=== PATIENT | male | born 1935 | race Caucasian/White ===

== ENCOUNTER → 2018-11-20 | Outpatient (CLI) | payer OTHER ==
[~2018-11-20] VITALS: Ht 177.8 cm; Wt 83.9 kg
[~2018-11-20] MED LIST: ALEVE220 MG; ASA5UEC; CENTRUM SILVER1 EAC1; FLOMAX0.4 MG PO; LOVASTATIN; LOVASTATIN 20 M20 MG PO; MAGOX 400400 MG PO; MECLIZINE 25 MG25 M1 PO; NEURONTIN 300300 M1 PO; NEXIUM; NEXIUM40 MG PO; OCUVITE TABLET1 EAC1; PRISTIQ50 MG; SYNTHROID; SYNTHROID125 MC1 PO; TRAMADOL 50 MG50 MG PO; VITAMIN D-32000 UNIT PO; VITAMIN D250 MCG PO; ZANAFLEX2 MG PO
--- NOTE | ~2018-11-20 | HPC ---
[facility] [address] [place] [address] PAIN MANAGEMENT CONSULTATION Name: BRYAN VAZQUEZ [id number] Admission: 11/20/18 ������������������ Attend Phys: Yony Baugh MD Discharge: ������������������ Date of : 31 Report #: [id number] THIS REPORT FOR: //name// CC: JENNA Baugh DATE OF SERVICE: 11/20/2018 CHIEF COMPLAINT: Low back pain with radiation into the right iliac crest region and right hip. HISTORY OF PRESENT ILLNESS: The patient is a really pleasant 83-year-old. Dr. Mcmillan has asked me to see in consultation. He has been dealing with low back pain. This got worse over the course of the last year. The pain intensity is an 8/10. He describes it as a continuous, steady, aching sensation. He has had several recent falls. Has had some dizziness, which may be related to medications. CURRENT MEDICATIONS: Omeprazole, magnesium, lovastatin, tizanidine, tramadol 50 mg b.i.d., levothyroxine 125 mcg daily, tamsulosin 0.4 mg at bedtime, gabapentin 300 mg b.i.d. and D3. ALLERGIES: None. 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 Locally by Dr. Munoz who performed the final repair. History cholecystectomy, hypothyroidism. SOCIAL HISTORY: He is retired. 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 Denies use of tobacco and alcohol. He is . His is supporting with him today. REVIEW OF SYSTEMS: He reports blurring of vision, loss of hearing, shortness of breath, dyspnea on exertion and orthopnea. He has frequent urination. PHYSICAL EXAMINATION: GENERAL: Pleasant, outgoing 83-year-old gentleman. He can move easily from sitting to standing position, but is unstable on his feet, which we considered a fall risk. VITAL SIGNS: He is 5 feet 10 inches, 185 pounds, BMI 26.5. Blood pressure is 135/85, heart rate 88. CHEST: Clear to auscultation. CARDIAC: Rhythm is regular. [facility] [address] [place] [address] PAIN MANAGEMENT CONSULTATION Name: BRYAN VAZQUEZ Room #: REG [facility]#: [id number] Admission: 11/20/18 ������������������ Attend Phys: Yony Baugh MD Discharge: ������������������ Date of : 33 Report #: [id number] ABDOMEN: Soft. MUSCULOSKELETAL: Reveals tenderness across his low back. He has minimal pain with forward flexion, but extension reproduces pain across the low back and down into the hips. Straight leg raising is negative other than hamstring tightness. Sensation is intact. He has some generalized weakness of the lower extremities. IMPRESSION: Low back pain with spondylosis. RECOMMENDATIONS: Rather than pursuing the extensive process of facet treatment, I would prefer today to proceed with an epidural steroid injection as a first step. If he did fail at this, I would consider facet arthropathy treatments with local anesthetic injection in the facet joints. He requires a preauthorization. I was unable to perform the injection today. I plan to see him back in the pain clinic in 1 week for a lumbar epidural steroid injection at L4-L5. ��������������������������������������������� ���������������������������������������� By: ��������������������������������������������� 1748 [id number] Yony Baugh MD /nt
--- NOTE | 2018-11-20 11:33 | NUR ---
Pain Clinic Assessment: 1. History of Osteoarthritis: YES History of Rheumatoid Arthritis: Not Applicable 2. Height: 5 ft. 10 in. 177.8 cm. Weight: 185.0 lb. oz. 83.916 kg. Patient's BMI: 26.5 3. Vital Signs: BP: Pulse: Resp: Temp: 02 Sat: ECG Mon: 4. Pain Intensity: 10 5. Fall Risk: Dizziness: Y Needs help standing or walking: N Fallen in the last 3 months: N Fall risk comments: 6. Patient on Blood Thinner: None 7. History of Hypertension: N 8. Opioid Therapy greater than 6 weeks: N Opiate Contract Signed: 9. Risk Assessment Tool Provided: aleksandr 10. Functional Assessment Tool: 11. Recreational Drug Use: Never Drug Type: Tobacco Use: Never Smoker Tobacco Type: Amount or Packs/day: How Many Years: Alcohol Use: No Frequency: Quant:
== END ==
LOC: PAIN 06:59
DX: M47.816 Spondylosis without myelopathy or radiculopathy, lumbar region (principal); Z79.899 Other long term (current) drug therapy; Z96.653 Presence of artificial knee joint, bilateral; Z91.81 History of falling

== ENCOUNTER → 2018-11-27 | Outpatient (CLI) | payer OTHER ==
[~2018-11-27] VITALS: Ht 177.8 cm; Wt 83.7 kg
--- NOTE | ~2018-11-27 | HPC ---
[facility] [place] [address] PAIN MANAGEMENT CONSULTATION Name: BRYAN VAZQUEZ Room #: REG [facility] Barrera#: [id number] Admission: 11/27/18 ������������������ Attend Phys: Yony Baugh MD Discharge: ������������������ Date of : 33 Report #: [id number] THIS REPORT FOR: //name// CC: Dr. Hipolito Baugh DATE OF SERVICE: 11/27/2018 Followup visit for L4-L5 spondylolisthesis, low back pain with radiation into the right iliac crest with spondylitic and radicular features. We have received preauthorization for the patient to undergo injection today. The procedure was explained in detail to him. Risks and benefits discussed and informed consent was signed. He was taken to the fluoroscopic suite for the procedure. IMPRESSION: Low back pain with radiation into the hip and pelvis. PROCEDURE: He was placed on the prone position on the table. Skin was prepped with ChloraPrep and anesthetized with 1% lidocaine over the L4-L5 interspace. A 20-gauge Tuohy epidural needle was advanced in the epidural space left of midline. There was no blood or CSF aspirated. 1 mL of Omnipaque was injected. This demonstrated a grade 1 anterolisthesis of L4 on L5. There appears to be an anterolisthesis of L4 on L5 and a retrolisthesis of L3 on L4. Excellent spread of dye was noted through this area. It was followed then by 3 mL of 0.5% lidocaine mixed with 80 mg of triamcinolone. Pain score dropped from 7 to 2 in recovery room and is in good condition. When he was discharged, there were no complications. Followup visit scheduled in the pain clinic in 1 month. ��������������������������������������������� ���������������������������������������� By: ��������������������������������������������� 1620 [id number] Yony Baugh MD /nt
[2018-11-27 09:38] VITALS: BP 96/50
--- NOTE | 2018-11-27 09:41 | NUR ---
Pain Clinic Assessment: 1. History of Osteoarthritis: YES History of Rheumatoid Arthritis: Not Applicable 2. Height: 5 ft. 10 in. 177.8 cm. Weight: 184.6 lb. oz. 83.734 kg. Patient's BMI: 26.5 3. Vital Signs: BP: 96/50 Pulse: 95 Resp: 20 Temp: 02 Sat: 99 ECG Mon: 4. Pain Intensity: 7 5. Fall Risk: Dizziness: N Needs help standing or walking: N Fallen in the last 3 months: N Fall risk comments: 6. Patient on Blood Thinner: None 7. History of Hypertension: N 8. Opioid Therapy greater than 6 weeks: N Opiate Contract Signed: 9. Risk Assessment Tool Provided: o-low 10. Functional Assessment Tool: 11. Recreational Drug Use: Never Drug Type: Tobacco Use: Never Smoker Tobacco Type: Amount or Packs/day: How Many Years: Alcohol Use: No Frequency: Quant:
== END | disposition home or self-care (01) ==
LOC: PAIN 06:51
DX: M47.26 Other spondylosis with radiculopathy, lumbar region (principal); M43.16 Spondylolisthesis, lumbar region; G89.29 Other chronic pain; Z88.8 Allergy status to other drugs, medicaments and biological substances; Z79.899 Other long term (current) drug therapy; Z98.890 Other specified postprocedural states

== ENCOUNTER → 2018-12-25 | Outpatient (CLI) | payer OTHER ==
[~2018-12-25] VITALS: Ht 177.8 cm; Wt 82.7 kg
[~2018-12-25] MED LIST changes: +HYDROCODON-ACE1 EAC7 PO; +NORCO 5-325 TA1 EACH PO
[2018-12-25 10:17] VITALS: BP 126/76
--- NOTE | 2018-12-25 10:29 | NUR ---
Pain Clinic Assessment: 1. History of Osteoarthritis: YES History of Rheumatoid Arthritis: Not Applicable 2. Height: 5 ft. 10 in. 177.8 cm. Weight: 182.4 lb. oz. 82.736 kg. Patient's BMI: 26.2 3. Vital Signs: BP: 126/76 Pulse: 80 Resp: 14 Temp: 02 Sat: 98 ECG Mon: 4. Pain Intensity: 3 5. Fall Risk: Dizziness: N Needs help standing or walking: Y Fallen in the last 3 months: N Fall risk comments: 6. Patient on Blood Thinner: None 7. History of Hypertension: N 8. Opioid Therapy greater than 6 weeks: N Opiate Contract Signed: 9. Risk Assessment Tool Provided: o-low 10. Functional Assessment Tool: 11. Recreational Drug Use: Never Drug Type: Tobacco Use: Never Smoker Tobacco Type: Amount or Packs/day: How Many Years: Alcohol Use: No Frequency: Quant:
--- NOTE | 2018-12-29 18:13 | HPC ---
[facility] [place] [address] [address] [place] [address] PAIN MANAGEMENT CONSULTATION Name: BRYAN VAZQUEZ [facility] [id number] Admission: 12/25/18 ������������������ Attend Phys: Yony Baugh MD Discharge: ������������������ Date of : 33 Report #: [id number] THIS REPORT FOR: //name// CC: Casey Baugh DATE OF SERVICE: 12/25/2018 Followup visit for persistent ongoing low back pain. The patient returns to pain clinic today for followup. He was treated with a lumbar epidural steroid injection L4-L5 where he has a grade 1 anterolisthesis. The procedure performed on 11/27/2018 provided very short-term relief, but the pain then returned back to baseline. We discussed further options for treatment. He reports that his pain is middle of his back, beltline. At this time, he really denies any radiation, although there seemed to be more at his last visit. There is a constant ache and it interferes with his standing activities. When he sits, pain is pretty good. He is able to lay flat at night from a comfort standpoint, but does have some shortness of breath and dyspnea, which is a chronic condition, followed by Dr. Mcmillan. He has a history of pulmonary fibrosis and obstructive sleep apnea. He has been given some CBD cream, but it is found to be limited in its benefit. He has tramadol, but takes it only rarely and he has tizanidine, which he takes at bedtime to help with the spasms in his low back. Other than that, he has not had other stronger pain medications provided. He has some diffuse osteoarthritis, most of it in his spine. He complains of some joint pains as well, consistent with aged shoulders, have been operated on in the past, and he has had bilateral knee replacements. He is not currently on blood thinning medications. He is receiving no medication for hypertension. His weight has been well controlled. He is not obese. BMI is 26.2. SOCIAL HISTORY: Denies use of tobacco or alcohol. PHYSICAL EXAMINATION: GENERAL: He is a pleasant 83 years old. He is a sharp hal and he and his were thoughtful today during our discussion. VITAL SIGNS: His blood pressure is 126/76, heart rate 80, respirations 14. His BMI is 26.2. MUSCULOSKELETAL: He moves from a sitting to [place] [address] PAIN MANAGEMENT CONSULTATION Name: BRYAN VAZQUEZ Room #: REG [facility]#: [id number] Admission: 12/25/18 ������������������ Attend Phys: Yony Baugh MD Discharge: ������������������ Date of : 33 Report #: [id number] his spine in some flexion for comfort. Extension reproduces pain across the lumbosacral segment. Straight leg raising currently is negative. Deep tendon reflexes are trace to 1+ bilaterally. Sensation intact. IMPRESSION: Low back pain with spondylosis. RECOMMENDATIONS: If we are going to provide any further injections, I think we need to go forward with facet injections, followed by diagnostic medial branch nerve blocks and perhaps radiofrequency. This can be helpful, although looking at his x-rays, his targets are not ideal. His medial branch nerves may be difficult to locate and that decreases the success of the procedure. We had a lengthy discussion today about the use of pain medication. He is not currently on an opioid medication nor is he on a nonsteroidal anti-inflammatory drug. There may be some outstanding risks from a cardiac standpoint for placing him on anti-inflammatory, but this would certainly be a consideration. I do think that the use of a small amount of hydrocodone in an 83-year-old gentleman, if he can tolerate it, might provide him with substantial relief. This would be considered a longer term medication that he might take indefinitely. We discussed suitable candidates. We have many patients in their 80s who are able to take opioids with benefit and minimal side effects. Doses can be as low as 2.5 mg 1 to 3 or 4 times a day. I would recommend that we provide him with a bit of that medication at this time and then follow up in about a month. We discussed constipation, lightheadedness, dizziness or just an overall sense of cognitive interference. If he sees any of these things, I would recommend against continuing. He would take this in lieu of tramadol, which seems to have very little benefit for him at this time. I did provide meloxicam for him at last visit, but this does not seem to be of benefit. Followup visit is planned in 1 month. Prescription provided for hydrocodone 5/325, 60 tablets with instructions on slow titration. ��������������������������������������������� <ELECTRONICALLY SIGNED> ���������������������������������������� By: Yony Baugh MD ��������������������������������������������� 12/29/18 1813 1829 [id number] Yony Baugh MD /nt
== END ==
LOC: PAIN 06:43
DX: M47.816 Spondylosis without myelopathy or radiculopathy, lumbar region (principal); Z79.899 Other long term (current) drug therapy